=== PATIENT | female | born 1985 | race Caucasian/White ===

== ENCOUNTER 2021-08-24 10:43 | Emergency (ER) | payer OTHER ==
[~2021-08-24] VITALS: Ht 167.6 cm; Wt 117.7 kg
[2021-08-24] MEDS ORDERED: HYDROcodone/APAP 5/325MG 1 TAB TABLET PO ONE (11:15)
[2021-08-24] MEDS ORDERED: AMOX500C PO (11:30)
--- NOTE | 2021-08-24 11:30 | PHYS DOC ---
Past History Past Surgical History: No Surgical History (DAMASO ROQUE APRN) Alcohol Use: Occasionally (DAMASO ROQUE APRN) General Adult EDM: Chief Complaint: EARACHE/EAR PAIN HPI: HPI: Patient is a 35-year-old female presents with left ear pain and headache. Patient states that pain has been off and on for the last 2 weeks. Patient's 2 kids have both been sick recently. Patient took ibuprofen prior to arrival with little relief. Denies fevers. Denies nausea/vomiting/diarrhea. Denies numbness, tingling, weakness. No medical history. (DAMASO ROQUE APRN) Review of Systems: Review of Systems: ROS At least 10 ROS systems have been reviewed and are negative except as documented in the HPI. General: Negative except as outlined in HPI above. Skin: Negative except as outlined in HPI above. HEENT: Negative except as outlined in HPI above. Neck: Negative except as outlined in HPI above. Respiratory: Negative except as outlined in HPI above.. Cardiovascular: Negative except as outlined in HPI above. Abdomen: Negative except as outlined in HPI above. : Negative except as outlined in HPI above. Back/MSK: Negative except as outlined in HPI above. Neuro: Negative except as outlined in HPI above. Psych: Negative except as outlined in HPI above. (DAMASO ROQUE APRN) Allergies: Allergies: Allergies Coded Allergies Type Severity Reaction Last Updated Verified No Known Drug Allergies 08/24/21 No (DAMASO ROQUE APRN) Physical Exam: PE: Constitutional: Well developed, well nourished, no acute distress, non-toxic appearance. [] HENT: Normocephalic, atraumatic, bilateral external ears normal, left tympanic membrane is red and bulging. Eyes: PERRLA, EOMI, conjunctiva normal, no discharge. [] Neck: Normal range of motion, no tenderness, supple, no stridor. [] Cardiovascular:Heart rate regular rhythm, no murmur [] Lungs & Thorax: Bilateral breath sounds clear to auscultation [] Abdomen: Bowel sounds normal, soft, no tenderness, no masses, no pulsatile masses. [] Skin: Warm, dry, no erythema, no rash. [] Back: No tenderness, no CVA tenderness. [] Extremities: No tenderness, no cyanosis, no clubbing, ROM intact, no edema. [] Neurologic: Alert and oriented X 3, normal motor function, normal sensory function, no focal deficits noted. [] Psychologic: Affect normal, judgement normal, mood normal. [] (DAMASO ROQUE APRN) Current Patient Data: Vital Signs: Vital Signs Date Time Temp Pulse Resp B/P (MAP) Pulse Ox O2 Delivery O2 Flow Rate FiO2 08/24/21 10:45 97.9 92 18 186/113 (137) 97 Room Air (DAMASO ROQUE APRN) EKG: EKG: [] (DAMASO ROQUE APRN) Radiology/Procedures: Radiology/Procedures: [] (DAMASO ROQUE APRN) Heart Score: C/O Chest Pain: No Risk Factors: Risk Factors: DM, Current or recent (<one month) smoker, HTN, HLP, family history of CAD, obesity. Risk Scores: Score 0 - 3: 2.5% MACE over next 6 weeks - Discharge Home Score 4 - 6: 20.3% MACE over next 6 weeks - Admit for Clinical Observation Score 7 - 10: 72.7% MACE over next 6 weeks - Early Invasive Strategies (DAMASO ROQUE APRN) Course & Med Decision Making: Course & Med Decision Making Pertinent Labs and Imaging studies reviewed. (See chart for details) [] 35-year-old female presents with left ear pain. Patient states that she has been having ear pain off and on for the last 2 weeks. Patient is also reporting a headache and sinus pressure. Patient took ibuprofen prior to arrival with little relief. Afebrile. Tympanic membrane on the left is red. Starting patient on antibiotics to treat AOM. Advised patient to continue taking ibuprofen every 8 hours for pain. Patient also should take [id number] Zyrtec to help with symptoms. Discussed return precautions. (DAMASO ROQUE APRN) Dragon Disclaimer: Dragon Disclaimer: This electronic medical record was generated, in whole or in part, using a voice recognition dictation system. (DAMASO ROQUE APRN) Attending Co-Sign The patient was seen and interviewed as well as examined at the bedside. The chart was reviewed. The case was discussed. Agree with the plan of care. (DAMASO BO DO) Departure Departure: Impression: Primary Impression: AOM (acute otitis media) Qualified Codes: H66.90 - Otitis media, unspecified, unspecified ear Disposition: HOME / SELF CARE / HOMELESS Condition: STABLE Referrals: GYPSY GREWAL (PCP) Patient Instructions: Otitis Media, Adult, [id number] Additional Instructions: You were seen emergency room for left ear pain and headache. You were given pain medication while in the ER to help with discomfort. Make sure that you are taking ibuprofen at home for pain and headache. I am sending you home with a prescription for acute otitis media. Make sure you take the antibiotic in full and as directed. Return to the emergency room if you have worsening symptoms or concerns. EMERGENCY DEPARTMENT GENERAL DISCHARGE INSTRUCTIONS Thank you for coming to [facility] (ED) today and trusting us with you care. We trust that you had a positivie experience in our Emergency Department. If you wish to speak to the department management, you may call the director at [phone]. YOUR FOLLOW UP INSTRUCTIONS ARE FOLLOWS: 1. Do you have a private Doctor? If you do not have a private doctor, please ask for a resource list of physicians or clinics that may be able to assist you with follow up care. 2. The Emergency Physician has interpreted your x-rays. The X-Ray specialist will also review them. If there is a change in the findings, you will be notified in 48 hours when at all possible. 3. A lab test or culture has been done, your results will be reviewed and you will be notified if you need a change in treatment. ADDITIONAL INSTRUCTIONS AND INFORMATION: 1. Your care today has been supervised by a physician who is specially trained in emergency care. Many problems require more than one evaluation for a complete diagnosis and treatment. We recommend that you schedule your follow up appointment as recommended to ensure complete treatment of you illness or injury. If you are unable to obtain follow up care and continue to have a problem, or if your condition worsens, we recommend that you return to the ED. 2. We are not able to safely determine your condition over the phone nor are we able to give sound medical advice over the phone. For these safety reasons, if you call for medical advice we will ask you to come to the ED for further evaluation. 3. If you have any questions regarding these discharge instructions please call the ED at [phone]. SAFETY INFORMATION: In the interest of safety, wellness, and injury prevention; we encourage you to wear your sealbelt, if you smoke; quite smoking, and we encourage family to use a protective helmet for bicycling and other sporting events that present an increased risk for head injury. IF YOUR SYMPTOMS WORSEN OR NEW SYMPTOMS DEVELOP, OR YOU HAVE CONCERNS ABOUT YOUR CONDITION; OR IF YOUR CONDITION WORSENS WHILE YOU ARE WAITING FOR YOUR FOLLOW UP APPOINTMENT; EITHER CONTACT YOUR PRIMARY CARE DOCTOR, THE PHYSICIAN WHOSE NAME AND NUMBER YOU WERE GIVEN, OR RETURN TO THE ED IMMEDIATELY. Scripts Amoxicillin (AMOXICILLIN) 500 Mg Capsule 1 CAP PO BID for aom for 5 Days, #10 CAP Prov: DAMASO ROQUE APRN 08/24/21 DAMASO ROQUE APRN Aug 24, 2021 11:30 DAMASO BO DO August 28, 2021 06:10
[2021-08-24 11:38] VITALS: BP 139/86
== END 2021-08-24 11:38 | disposition home or self-care (01) ==
LOC: ER 10:43
DX: H66.92 Otitis media, unspecified, left ear (principal); R51.9 Headache, unspecified
CPT/HCPCS: 99283